=== PATIENT | male | born 1970 | race Caucasian/White ===

== ENCOUNTER 2019-05-04 16:33 | Emergency (ER) | payer OTHER ==
[~2019-05-04] VITALS: Ht 177.8 cm; Wt 82.7 kg
[2019-05-04 16:55] VITALS: BP 129/88
--- NOTE | 2019-05-04 16:56 | NUR ---
BREAK RN FOR PRIMARY RN STACY. 48 Y/O M PRESENTS STATING "I HAVE PANCREATITIS, THE URGENT CARE SENT ME HERE. SEVERE ABDOMINAL PAIN LAST WEEK, GETTING WORSE AND WORSE." RATES PAIN 10/. RUQ, LUQ, LLQ ALL TENDER TO PALP. BOWEL SOUNDS ACTIVE. ABD SOFT, NON-DISTENDED. DENIES N/V/D. CONT PULSE OX, BP MONITORS APPLIED. VSS. A&OX4. SPOUSE AT BEDSIDE. CALL LIGHT IN REACH. FALL PRECAUTIONS IN PLACE. AWAITING EVAL BY ERP.
[2019-05-04] MEDS ORDERED: LISI5TAB7 PO (17:07)
[2019-05-04] MEDS ORDERED: OMEP-110 PO (17:07)
--- NOTE | 2019-05-04 17:10 | NUR ---
MAXIM RN. DR. ROCA AT BEDSIDE FOR EVALUATION, AWAITING ORDERS
--- NOTE | 2019-05-04 17:23 | NUR ---
REPORT AND CARE TO PRIMARY DALE KUMAR AT THIS TIME.
[2019-05-04] MEDS ORDERED: SODIUM CHLORIDE 0.9% 1,000 ML IV ONE (17:42)
[2019-05-04] MEDS ORDERED: MORPHINE SULFATE 4 MG/ML, 1ML ONE (17:58)
[2019-05-04] MEDS ORDERED: ONDANSETRON 2MG/ML, 2ML ONE (17:58)
[2019-05-04] MEDS ORDERED: SODIUM CHLORIDE FLUSH 10ML SYR IVF ONE (18:00)
[2019-05-04] MEDS ORDERED: MORPHINE SULFATE 4 MG/ML, 1ML IVPush PRN (18:00)
[2019-05-04 18:09] LABS: BASOPHILS # (AUTO) 0.02 x10^3/uL (0-0.1); BASOPHILS % (AUTO) 0 % (0-1); EOSINOPHILS # (AUTO) 0.15 x10^3/uL (0-0.4); EOSINOPHILS % (AUTO) 2 % (1-7); LYMPHOCYTES # (AUTO) 2.14 x10^3/uL (1-3.4); LYMPHOCYTES % (AUTO) 21 % (22-44); MD NO; MEAN CORPUSCULAR HEMOGLOBIN 32.7 pg (27.5-34.5); MEAN CORPUSCULAR HGB CONC 33.2 g/dL (33.2-36.2); MEAN CORPUSCULAR VOLUME 98.4 fL (81-97); MEAN PLATELET VOLUME 9.8 fL (7.4-10.4); MONOCYTES % (AUTO) 8 % (2-9); NEUTROPHILS # (AUTO) 7.22 x10^3/uL (1.8-6.8); NEUTROPHILS % (AUTO) 70 % (42-75); PLATELET COUNT 217 x10^3/uL (130-400); RED BLOOD COUNT 5.14 x10^6/uL (4.38-5.82); RED CELL DISTRIBUTION WIDTH 14.1 % (9.4-14.8)
[2019-05-04 18:15] LABS: ALANINE AMINOTRANSFERASE 25 U/L (12-78); ALBUMIN 3.8 g/dL (3.4-5.0); ANION GAP 5 mmol/L (5-15); CALCIUM 9.3 mg/dL (8.5-10.1); CHLORIDE 104 mmol/L (98-107); CREATININE 0.87 mg/dL (0.7-1.3)
[2019-05-04 18:17] LABS: ALKALINE PHOSPHATASE 75 U/L (45-117); BILIRUBIN,TOTAL 0.6 mg/dL (0.2-1.0)
--- NOTE | 2019-05-04 18:45 | NUR ---
ALL RESULTS BACK, PT FOR RECHECK. VSS/UPDATED IN COMPUTER. PT RESTING QUIETLY.
[2019-05-04] MEDS ORDERED: MAALOX/HYOSCYAMINE/LIDOCAINE 45 ML BTL ONE (18:52)
--- NOTE | 2019-05-04 18:57 | NUR ---
GI COCKTAIL GIVEN PER ERP ORDER. SALTINES PROVIDED WITH INSTRUCTS TO TAKE IN 5 MINUTES. EPIGASTRIC PAIN RATED 5/10 AT THIS TIME. CALL LIGHT WITHIN REACH.
[2019-05-04] MEDS ORDERED: MAALOX/HYOSCYAMINE/LIDOCAINE 45 ML BTL PO ONE (19:00)
--- NOTE | 2019-05-04 19:45 | NUR ---
PT TOLERATED PO CHALLENGE WELL, STATES "SMALL FLARE UP" OF ABD PAIN.
== END 2019-05-04 20:16 | disposition home or self-care (01) ==
LOC: ED 19:52
DX: K85.90 Acute pancreatitis without necrosis or infection, unspecified (principal); R10.13 Epigastric pain
CPT/HCPCS: 36415; 80053; 83690; 85025; 96374; 99283; J2270; J7030

== ENCOUNTER → 2019-05-04 | Outpatient (CLI) | payer OTHER ==
[~2019-05-04] MED LIST: LISI5TAB7 PO; OMEP-110 PO; OMNIPAQUE 350 MG/ML, 100ML BOTTLE ONE
== END | disposition home or self-care (01) ==
LOC: CFH 12:26
PROVIDERS: ATTEND Family Medicine
DX: K85.90 Acute pancreatitis without necrosis or infection, unspecified (principal); M51.37 Other intervertebral disc degeneration, lumbosacral region; K76.0 Fatty (change of) liver, not elsewhere classified; R10.13 Epigastric pain; F17.200 Nicotine dependence, unspecified, uncomplicated
CPT/HCPCS: 74177; Q9967